=== PATIENT | female | born 1945 | race Caucasian/White ===

== ENCOUNTER → 2016-11-24 | Outpatient (CLI) | payer MEDICARE, OTHER | END | disposition home or self-care (01) | LOC: GMAB 11:31 | PROVIDERS: ATTEND Family Medicine | DX: E03.9 Hypothyroidism, unspecified (principal) ==

== ENCOUNTER → 2016-12-22 | Outpatient (CLI) | payer MEDICARE, OTHER ==
--- NOTE | 2016-12-22 15:34 | MAM ---
History: Well woman exam. Date of exam: 12/22/2016 Services provided: Bilateral full field digital screening mammography. CAD, the images were reviewed with R2 computer aided detection. FINDINGS: Glandular tissue is near completely fatty involuted. Comparison with 2014 exam. No dominant mass, architectural distortion or clustered microcalcification. IMPRESSION: Benign exam Recommendation: Routine annual mammography BIRAD CATEGORY: 2 BENIGN Electronically signed by: Colette Zapata MD 12/22/2016 3:33 PM CDT Workstation: [id number]
== END | disposition home or self-care (01) ==
LOC: MAMMO 14:29
PROVIDERS: ATTEND Family Medicine
DX: Z12.31 Encounter for screening mammogram for malignant neoplasm of breast (principal)

== ENCOUNTER → 2017-04-09 | Outpatient (CLI) | payer MEDICARE, OTHER ==
--- NOTE | 2017-04-09 15:41 | RAD ---
EXAM DESCRIPTION: Hip,Right 2 Views CLINICAL HISTORY: 71 years, Female, HIP PAIN COMPARISON: FINDINGS: Two views of the right hip do not demonstrate fracture or dislocation. Slight narrowing superolaterally with spurring. IMPRESSION: No fracture or dislocation. Mild degenerative change, slightly more advanced than the left side Electronically signed by: Viktor Sanchez MD 04/09/2017 3:40 PM CDT
--- NOTE | 2017-04-09 15:41 | RAD ---
EXAM DESCRIPTION: Hip,Left 2 Views CLINICAL HISTORY: 71 years, Female, HIP PAIN COMPARISON: FINDINGS: Two views of the left hip do not demonstrate fracture or dislocation. Minimal spurring from the lateral acetabulum IMPRESSION: No fracture or dislocation Electronically signed by: Viktor Sanchez MD 04/09/2017 3:40 PM CDT
--- NOTE | 2017-04-09 15:42 | RAD ---
EXAM DESCRIPTION: Pelvis CLINICAL HISTORY: 71 years, Female, HIP PAIN COMPARISON: FINDINGS: No fracture. Pelvic ring intact. Mild degenerative narrowing of both hips more on the right. IMPRESSION: No fracture or dislocation. Mild degenerative change Electronically signed by: Viktor Sanchez MD 04/09/2017 3:40 PM CDT
== END | disposition home or self-care (01) ==
LOC: RAD 08:14
PROVIDERS: ATTEND Orthopaedic Surgery
DX: M25.552 Pain in left hip (principal); M25.551 Pain in right hip

== ENCOUNTER → 2017-11-30 | Outpatient (CLI) | payer MEDICARE, OTHER | LOC: GMAB 10:45 | PROVIDERS: ATTEND Family Medicine | DX: E03.9 Hypothyroidism, unspecified (principal) ==

== ENCOUNTER → 2018-01-25 | Outpatient (CLI) | payer MEDICARE, OTHER ==
--- NOTE | 2018-01-28 08:06 | MAM ---
EXAM DESCRIPTION: 3D Screening BILATERAL : Digital Mammography. CLINICAL HISTORY: 72 years Female SCREENING . No complaints. No family history breast cancer. Childbirth. Postmenopausal. Currently on HRT. COMPARISON: Bilateral digital screening mammography 12/22/2016. Report from prior examination also reviewed. TECHNIQUE: Bilateral CC and MLO projection full-field images, 3-D tomosynthesis digital mammographic technique. CAD not utilized. FINDINGS: The breast parenchymal density pattern is: Scattered areas of fibroglandular density. No skin thickening or nipple retraction. Bilateral axillary lymph nodes. Bilateral vascular calcifications. Stable focal asymmetry in the upper-outer quadrant of the left breast. No new focal, stellate mass or density, focal asymmetry , and no suspicious microcalcifications bilaterally. Stable mammograms compared to prior study, taking into account differences in mammographic technique. IMPRESSION: BI-RADS CATEGORY: 2 - BENIGN FINDINGS. FOLLOW UP: Routine digital bilateral screening, one year interval from January 2018. Written communication explaining the IMPRESSION and follow-up, will be mailed to the patient and referring health care provider. According to the [employer], yearly mammograms are recommended starting at age 40 and continuing as long as a woman is in good health. Any breast change noted on a breast self-exam should be reported promptly to the patient's healthcare provider. Breast MRI is recommended for women with an approximately 20-25% or greater lifetime risk of breast cancer, including women with a strong family history of breast or ovarian cancer and women who have been treated for Hodgkin's disease. A negative mammographic report should not delay tissue diagnosis in patients with significant clinical history or physical findings. Extremely dense breast tissue limits the sensitivity of digital mammography. Electronically signed by: Saman Bae MD 01/28/2018 8:05 AM CDT
== END ==
LOC: MAMMO 13:00
PROVIDERS: ATTEND Family Medicine
DX: Z12.31 Encounter for screening mammogram for malignant neoplasm of breast (principal)

== ENCOUNTER → 2018-04-21 | Outpatient (CLI) | payer MEDICARE, OTHER ==
--- NOTE | 2018-04-21 16:57 | RAD ---
EXAM DESCRIPTION: Knee,Left Complete CLINICAL HISTORY: KNEE PAIN COMPARISON: None. FINDINGS: 4 standing views of the left knee show severe narrowing of the medial tibiofemoral compartment with sclerotic changes at the weightbearing articular surface. Mild medial and lateral tibiofemoral compartment joint line osteophytes are seen. Mild posterior superior osteophyte of the patella is noted without significant narrowing of the patellofemoral compartment. Osteophytes of the medial patellofemoral compartment are seen. Mild increased density in the suprapatellar bursa is noted. IMPRESSION: 3 compartment osteoarthritic changes of the left knee are seen with severe osteoarthritic changes of the medial tibiofemoral compartment. Small knee joint effusion is suspected. Electronically signed by: Froilan Leavitt MD 04/21/2018 4:56 PM CDT
--- NOTE | 2018-04-21 16:58 | RAD ---
EXAM DESCRIPTION: Pelvis CLINICAL HISTORY: HIP PAIN COMPARISON: April 09, 2017 IMPRESSION: Single AP supine view of the pelvis shows no evidence of acute fracture, focal bone destruction, or joint dislocation. Mild narrowing of the hip joint space bilaterally seen with mild circumferential osteophytes of the terminal head clinical data assistant with mild to moderate osteoarthritic changes of the hips. Electronically signed by: Froilan Leavitt MD 04/21/2018 4:57 PM CDT
== END ==
LOC: RAD 09:02
PROVIDERS: ATTEND Orthopaedic Surgery
DX: M17.12 Unilateral primary osteoarthritis, left knee (principal); M25.562 Pain in left knee; M25.552 Pain in left hip

== ENCOUNTER → 2018-05-09 | Outpatient (CLI) | payer MEDICARE, OTHER | LOC: LAB.O 09:17 | PROVIDERS: ATTEND Orthopaedic Surgery | DX: Z01.818 Encounter for other preprocedural examination (principal) ==

== ENCOUNTER 2018-06-08 05:38 | Inpatient (IN) | payer MEDICARE, OTHER ==
--- NOTE | 2018-06-06 09:10 | HP ---
CHIEF COMPLAINT: Left knee pain. HISTORY OF PRESENT ILLNESS: Ms. Mckeon is a 73-year-old female with a history of pain in the knee that has been getting progressively worse and has been refractory to conservative measures. Because of the refractory nature of it and her ongoing dysfunction from it, she has requested operative intervention. After discussing the risks, benefits and alternatives to operative therapy, the patient has given informed consent. PAST SURGICAL HISTORY: None. MEDICATIONS: 1. Citalopram. 2. Hydrocodone. 3. Zolpidem. ALLERGIES: PENICILLIN. CODE STATUS: Full code. IMMUNIZATIONS: Up to date. FAMILY HISTORY: None pertinent to today's complaint. SOCIAL HISTORY: The patient does not drink, smoke or use any illicit drugs. REVIEW OF SYSTEMS: Negative except as indicated in the History of Present Illness. PHYSICAL EXAMINATION: VITAL SIGNS: Blood pressure 118/86. Pulse 93. Height 5'3". Weight 189 pounds. MENTAL STATUS: The patient is awake, alert, and is able to give a good history and participate in the physical. The patient is oriented to person, place and time. SKIN: Normal tone and turgor. HEENT: Normocephalic, atraumatic. Pupils equal, round and reactive. Mucosal membranes are moist. NECK: Normal range of motion. No thyromegaly, no lymphadenopathy. CHEST: Normal respiratory excursion. CARDIAC: Regular rate and rhythm. No murmurs, rubs or gallops. MUSCULOSKELETAL: Bilateral upper extremities show full active range of motion. She has intact sensation. They are warm and well perfused. There is no deformity. Strength is 5/5. The right lower extremity shows no pain with range of motion of the hip. Sensation is intact. It is warm and well perfused. She has no significant varus/valgus or anterior/posterior laxity. The left lower extremity shows full range of motion of the hip. She has intact sensation throughout. It is warm and well perfused. She has no varus/valgus or anterior/posterior laxity of the knee. She is very tender to palpation diffusely. She has slight varus deformity. She has crepitus throughout her range of motion with full extension to flexion of about 110 degrees. IMAGING: X-rays show severe arthritis. ASSESSMENT: 1. Osteoarthritis. PLAN: The plan at this point is for total knee arthroplasty. We have discussed the risks, benefits, and alternatives to that and the patient has given informed consent. #[id number] [facility]
[2018-06-08] MEDS ORDERED: VANCOMYCIN HCL INJ 1,000 MG VIAL IVPB ONE ×4 (05:59→20:44)
[2018-06-08] MEDS ORDERED: LACTATED RINGERS 1,000 ML ONE ×2 (05:59→09:03)
[2018-06-08] MEDS ORDERED: TRANEXAMIC ACID 1,000 MG/10 ML VIAL ONE ×2 (05:59→06:00)
[2018-06-08] MEDS ORDERED: SODIUM CHL 0.9% 100ML MINI-BAG 100 ML IVPB ONE (05:59)
[2018-06-08] MEDS ORDERED: SODIUM CHLORIDE 0.9% 100ML 100 ML IVPB ONE (06:00)
[2018-06-08] MEDS ORDERED: ceFAZolin SODIUM 1 GM VIAL ONE ×2 (06:00→06:27)
[2018-06-08] MEDS ORDERED: SODIUM CHLORIDE 0.9% 250ML 250 ML ONE ×3 (06:00→20:43)
[2018-06-08] MEDS ORDERED: MORPHINE SULFATE *EPIDURAL* 0.5 MG/ML VIAL ONE (06:30)
[2018-06-08] MEDS ORDERED: MIDAZOLAM INJ 2 MG/2 ML VIAL ONE (06:31)
[2018-06-08] MEDS ORDERED: fentaNYL CITRATE INJ 50 MCG/ML AMP ONE (06:31)
[2018-06-08] MEDS ORDERED: TRANEXAMIC ACID 1,000 MG/10 ML VIAL IV ONE (06:36)
[2018-06-08] MEDS ORDERED: PROPOFOL 200 MG/20 ML VIAL IV ONE (07:00)
[2018-06-08] MEDS ORDERED: DEXAMETHASONE INJ 10 MG/ML VIAL ONE (07:00)
[2018-06-08] MEDS ORDERED: LIDOCAINE 1% 10 ML VIAL INJ ONE (07:00)
[2018-06-08] MEDS ORDERED: VECURONIUM BROMIDE 10 MG VIAL IV ONE (07:00)
[2018-06-08] MEDS ORDERED: ePHEDrine SULF 50 MG/ML ONE (07:00)
[2018-06-08] MEDS ORDERED: ONDANSETRON INJ 4 MG/2 ML VIAL ONE (07:00)
[2018-06-08] MEDS ORDERED: WATER FOR INJ 10 ML VIAL INJ ONE (07:00)
[2018-06-08] MEDS ORDERED: diphenhydrAMINE HCL 50 MG/ML VIAL ONE (07:24)
[2018-06-08] MEDS: BUPIVACAINE 0.5% 30 ML VIAL INJ ONE ×2 (08:09→08:49)
[2018-06-08] MEDS: ceFAZolin SODIUM 1 GM VIAL ONE ×2 (08:09→08:51)
[2018-06-08] MEDS: VANCOMYCIN HCL INJ 1,000 MG VIAL IVPB ONE ×2 (08:09→08:51)
[2018-06-08] MEDS: BUPIVACAINE LIPOSOME 13.3 MG/ML VIAL INJ ONE ×2 (08:09→08:49)
[2018-06-08] MEDS ORDERED: SUGAMMADEX SODIUM 200 MG/2 ML VIAL IV ONE (09:03)
[2018-06-08] MEDS ORDERED: ACETAMINOPHEN 325 MG TAB PO PRN (09:31)
[2018-06-08] MEDS ORDERED: NALOXONE HCL INJ 0.4 MG/ML VIAL IV PRN (09:31)
[2018-06-08] MEDS ORDERED: MORPHINE SULFATE INJ 10 MG/ML VIAL IV PRN (09:31)
[2018-06-08] MEDS ORDERED: TEMAZEPAM 15 MG CAP PO PRN (09:31)
[2018-06-08] MEDS ORDERED: MAGNESIUM HYDROXIDE 30 ML UD PO PRN (09:31)
[2018-06-08] MEDS ORDERED: PROMETHAZINE HCL INJ 12.5 MG in SODIUM CHLORIDE 0.9% 50ML 50 ML IVPB PRN (09:31)
[2018-06-08] MEDS ORDERED: CYCLOBENZAPRINE HCL 10 MG TAB PO PRN (09:31)
[2018-06-08] MEDS ORDERED: BISACODYL SUPPOSITORY 10 MG PR PRN (09:31)
[2018-06-08] MEDS ORDERED: MORPHINE SULFATE INJ 10 MG/ML VIAL IM PRN (09:31)
[2018-06-08] MEDS ORDERED: PROMETHAZINE HCL INJ 25 MG in SODIUM CHLORIDE 0.9% 50ML 50 ML IVPB PRN (09:31)
[2018-06-08] MEDS ORDERED: TRANEXAMIC ACID INJ 1,000 MG in SODIUM CHLORIDE 0.9% 100ML 100 ML IVPB ONE (09:31)
[2018-06-08] MEDS ORDERED: ALUMINUM & MAGNESIUM HYDROXIDE 30 ML UD PO PRN (09:31)
[2018-06-08] MEDS ORDERED: BENZOCAINE-MENTH LOZ (CEPACOL) 1 EA LOZ MT PRN (09:31)
[2018-06-08] MEDS ORDERED: ACETAMINOPHEN 500 MG TAB PO PRN (09:31)
[2018-06-08] MEDS ORDERED: DEX 5% W/NACL 0.45% 1000ML 1,000 ML IVS PRN (09:31)
[2018-06-08] MEDS ORDERED: IV SET AND CAP CHANGE INJ INJ SCH (10:00)
[2018-06-08] MEDS ORDERED: MORPHINE PCA 1 MG/ML 100 ML BAG IVPB SCH (10:00)
[2018-06-08] MEDS: ONDANSETRON INJ 4 MG/2 ML VIAL IV PRN ×2 (10:35→18:20)
--- NOTE | 2018-06-08 10:40 | OP ---
DATE OF PROCEDURE: 06/08/18 PREOPERATIVE DIAGNOSIS: 1. Arthritis of the knee. POSTOPERATIVE DIAGNOSIS: 1. Arthritis of the knee. PROCEDURE: 1. Total knee arthroplasty. SURGEON: Agustín De Paz MD. WET END OPERATOR: Saman Mustafa CST, SA-C. ANESTHESIA: General anesthesia. COMPLICATIONS: None. FINDINGS: Severe arthritis of the knee with varus deformity. INDICATION: Ms. Mckeon has a history of severe knee pain which has been refractory to conservative measures. Because of her ongoing knee pain and the refractory nature of it, she has requested operative intervention. After discussing the risks, benefits and alternatives to that, the patient has given informed consent for total knee arthroplasty. PROCEDURE: The patient was brought to the Operating Room and placed in supine position. General anesthesia was induced and the patient's leg was sterilely prepped and draped. Following prepping and draping, the distal femur was exposed and using an intramedullary guide, the distal femoral cut was made. The appropriate sized cutting block was measured, pinned into place, and the anterior, posterior, and chamfer cuts were made. The ACL was transected and the tibia was subluxed. Both the medial and lateral menisci were removed. An intramedullary guide was used to make the proximal tibial cut. The appropriate sized base plate was placed and a trial polyethylene was placed. The trial femur was placed, the knee was reduced, and the knee was taken through a range of motion. The knee was stable in anterior, posterior, varus and valgus stress. The patella tracked anatomically without evidence of subluxation or dislocation. After trialing, the trial components were removed and the bony surfaces were thoroughly irrigated with saline. Following irrigation, the surfaces were dried and the final components were cemented into place. The excess cement was removed and the remaining cement was allowed to cure. The knee was again taken through a range of motion to confirm stability. The wound was then irrigated with saline and closure was performed using PDS to approximate the arthrotomy followed by closure of the subcutaneous tissues with a combination of running and interrupted Monocryl sutures. Sterile dressing was placed. The patient was awoken from anesthesia and taken to Recovery. POSTOPERATIVE PLAN: The patient will be weight-bearing as tolerated on postoperative day 1. COMPONENTS: Inside Secure Triathlon knee, size 3 femur, size 3 tibia, 11 mm insert. [facility][id number] [facility]
--- NOTE | 2018-06-08 12:00 | RAD ---
EXAM DESCRIPTION: Knee,Left 2 or More Views CLINICAL HISTORY: 73 years Female, TKA COMPARISON: April 21, 2018 FINDINGS: Two views of left knee show interval left knee arthroplasty without hardware or other surgical complication. No periprosthetic fracture is identified. No suspicious radiopaque foreign body. IMPRESSION: Uncomplicated postoperative changes in the left knee. Electronically signed by: Shalom Vidal MD 06/08/2018 11:58 AM [facility]
[2018-06-08] MEDS: diphenhydrAMINE HCL 50 MG/ML VIAL IV PRN (12:45)
[2018-06-08] MEDS: SODIUM CHLORIDE 0.9% (FLUSH) 10 ML SYG IV PRN (12:45)
[2018-06-08] MEDS ORDERED: ceFAZolin SODIUM 2 GRAMS PREMI 50 ML IVPB ONE ×2 (15:41→20:44)
[2018-06-08] MEDS: ceFAZolin SODIUM 2 GRAMS PREMI 2 GM in PREMIX BAG 1 BAG IVPB SCH ×2 (17:09→23:55)
[2018-06-08] MEDS: CELECOXIB 100 MG CAP PO SCH (17:14)
[2018-06-08] MEDS: VANCOMYCIN HCL INJ 1,000 MG in SODIUM CHLORIDE 0.9% 250ML 250 ML IVPB SCH (17:48)
[2018-06-08] MEDS ORDERED: CITALOPRAM HYDROBROMIDE 20 MG PO SCH (21:00)
[2018-06-08] MEDS: ZOLPIDEM TARTRATE 5 MG TAB PO PRN (21:20)
[2018-06-08] MEDS: DOCUSATE CALCIUM 240 MG CAP PO SCH (21:20)
[2018-06-08] MEDS: CITALOPRAM HBR 20 MG TAB PO SCH (21:21)
--- NOTE | 2018-06-08 22:41 | CONS ---
DATE OF CONSULTATION: 06/08/18 SUPERVISING PHYSICIAN: Ezekiel Reddy M.D. CHIEF COMPLAINT: Left knee pain. HISTORY OF PRESENT ILLNESS: This is a 73 year-old female patient who has a history of left knee pain. She has had osteoarthritis for several years. She has tried conservative measures and has been unable to relieve the pain. She has requested operative intervention per Dr. Agustín De Paz, orthopedic surgeon, to do a left total knee arthroplasty today. She was admitted for her surgical procedure today. She had no problems intraoperatively and I am seeing the patient postoperatively in consultation. PAST MEDICAL HISTORY: 1. Hypothyroidism presently on no treatment. 2. Anxiety and depression. 3. Chronic low back pain. 4. Gastroesophageal reflux disease. 5. Osteoarthritis. 6. Obstructive sleep apnea. 7. Osteoporosis. 8. Hyperlipidemia. PAST SURGICAL HISTORY: 1. Tonsillectomy and adenoidectomy. 2. Scope of the right knee. OUTPATIENT MEDICATIONS: 1. Zolpidem. 2. Citalopram. ALLERGIES: PENICILLIN. FAMILY HISTORY: Positive for myocardial infarction and cancer. SOCIAL HISTORY: She is . She has 2 children. She denies any smoking, ETOH or illicit drug use. REVIEW OF SYSTEMS: Negative except as per history of present illness. PHYSICAL EXAMINATION: VITAL SIGNS: She is afebrile, heart rate 96, blood pressure 106/66, respiratory rate 14, O2 sat 93% on 2 liters nasal cannula. GENERAL: HEENT: NECK: CHEST: HEART: ABDOMEN: NEUROLOGIC: SKIN: LABORATORY: There are no labs or films to report at this time. IMPRESSION: 1. Osteoarthritis of the left knee status post left total knee arthroplasty per Dr. Agustín De Paz, orthopedic surgeon. Postoperative day #0. 2. Anxiety and depression. 3. Gastroesophageal reflux disease. 4. Osteoarthritis. 5. Obstructive sleep apnea. 6. Osteoporosis. PLAN: We will continue present supportive care. Orthopedic issues will be per Dr. Agustín De Paz, orthopedic surgeon. She will begin her physical therapy for strengthening and conditioning tomorrow. I have encouraged pulmonary hygiene. I have also given her a PPI due to her GERD and I have started her home medications. Will continue to monitor closely and follow as needed. Dr. Reddy is the collaborating physician available for consultation. #[id number] [facility]
[2018-06-08] MEDS: ENOXAPARIN SODIUM 30 MG/0.3 ML SYG SUBCU SCH (23:14)
[2018-06-09] MEDS ORDERED: PANTOPRAZOLE SODIUM IV 40 MG VIAL ONE (04:23)
[2018-06-09] MEDS: VANCOMYCIN HCL INJ 1,000 MG in SODIUM CHLORIDE 0.9% 250ML 250 ML IVPB SCH (06:03)
[2018-06-09] MEDS: PANTOPRAZOLE SODIUM TAB 40 MG PO SCH (06:06)
[2018-06-09] MEDS: HYDROcodone 5MG/APAP 325MG 1 EA TAB PO PRN ×2 (06:27→12:51)
[2018-06-09] MEDS: CELECOXIB 100 MG CAP PO SCH ×2 (08:04→17:10)
[2018-06-09] MEDS: MAGNESIUM OXIDE 400 MG TAB PO SCH (08:40)
--- NOTE | 2018-06-09 09:04 | PN ---
DATE: 06/09/18 SUBJECTIVE: Ms. Mckeon is doing well and pain is well controlled today. OBJECTIVE: Afebrile. Vital signs stable. Dressing is clean, dry and intact. ASSESSMENT: Status post total knee arthroplasty. PLAN: The plan at this point is for her to begin weightbearing as tolerated today and increase CPM as tolerated. #[id number] [facility]TDD
[2018-06-09] MEDS ORDERED: SODIUM CHLORIDE 0.9% 100ML 100 ML IVPB ONE (09:13)
[2018-06-09] MEDS ORDERED: ceFAZolin SODIUM 1 GM VIAL ONE (09:14)
[2018-06-09] MEDS: ceFAZolin SODIUM 2 GRAMS PREMI 2 GM in PREMIX BAG 1 BAG IVPB SCH (09:22)
[2018-06-09] MEDS: ONDANSETRON INJ 4 MG/2 ML VIAL IV PRN (09:32)
[2018-06-09] MEDS: SODIUM CHLORIDE 0.9% (FLUSH) 10 ML SYG IV PRN (09:33)
[2018-06-09] MEDS: ENOXAPARIN SODIUM 30 MG/0.3 ML SYG SUBCU SCH ×2 (11:25→23:25)
--- NOTE | 2018-06-09 13:07 | PN ---
SUPERVISING PHYSICIAN: Ezekiel Reddy MD DATE: 06/09/18 SUBJECTIVE: The patient is sitting up in her chair in her hospital room. She had a good night. Her pain has been minimal. She felt like her physical therapy went well. At this point, she feels like that on discharge, she will do outpatient therapy at [facility]. She denies any coughing, shortness of breath, nausea, vomiting, diarrhea or chest pain. OBJECTIVE: VITAL SIGNS: Afebrile. Heart rate 79. Blood pressure 95/63. Respiratory rate 17. O2 saturation 95% on room air. RESPIRATORY: Essentially clear to auscultation bilaterally. CARDIAC: Regular rate and rhythm. GASTROINTESTINAL: Abdomen is soft, nondistended, nontender. Bowel sounds are positive. EXTREMITIES: Her left knee has the JACQUELINE wrap. It is dry and intact. Bilateral pedal pulses are palpable at +2. NEUROLOGIC: Awake, alert and oriented times three. LABORATORY: Hemoglobin 11.1, hematocrit 34.9. All other labs and films have been reviewed via the EMR. ASSESSMENT: 1. Osteoarthritis of the left knee status post left total knee arthroplasty per Dr. Agustín De Paz, orthopedic surgeon. Postoperative day #1. 2. Anxiety and depression. 3. Gastroesophageal reflux disease. 4. Osteoarthritis. 5. Obstructive sleep apnea. 6. Osteoporosis. PLAN: We will continue present supportive care. Orthopedic issues will be per Dr. Agustín De Paz, orthopedic surgeon. She will continue with her physical therapy for strengthening and conditioning. Continue to encourage good pulmonary hygiene. I have ordered a walker for her for her discharge. We will continue to monitor the patient closely and follow as needed. Dr. Reddy is the collaborating physician and available for consultation. #[id number] [facility]
[2018-06-09] MEDS: traMADol HCL 50 MG TAB PO PRN ×2 (14:11→21:20)
[2018-06-09] MEDS: diphenhydrAMINE HCL 50 MG/ML VIAL IV PRN (20:16)
[2018-06-09] MEDS: CITALOPRAM HBR 20 MG TAB PO SCH (21:19)
[2018-06-09] MEDS: ZOLPIDEM TARTRATE 5 MG TAB PO PRN (21:19)
[2018-06-09] MEDS: DOCUSATE CALCIUM 240 MG CAP PO SCH (21:19)
[2018-06-10] MEDS: traMADol HCL 50 MG TAB PO PRN (05:59)
[2018-06-10] MEDS: PANTOPRAZOLE SODIUM TAB 40 MG PO SCH (06:00)
[2018-06-10] MEDS: CELECOXIB 100 MG CAP PO SCH (08:09)
[2018-06-10] MEDS: MAGNESIUM OXIDE 400 MG TAB PO SCH (08:23)
--- NOTE | 2018-06-10 08:23 | PN ---
DATE: 06/10/18 SUBJECTIVE: Ms. Mckeon is doing pretty well. OBJECTIVE: Afebrile. Vital signs stable. Wound is clean. There are no signs or symptoms of infection. ASSESSMENT: Status post total knee arthroplasty. PLAN: The plan at this point is for her to continue with therapy. We will discharge her today with followup in the clinic. She has been instructed to return immediately should any change in her condition occur. #[id number] [facility]
[2018-06-10] MEDS ORDERED: SODIUM CHLORIDE 0.9% (FLUSH) 10 ML SYG IV SCH (09:00)
[2018-06-10 09:49] VITALS: BP 111/73; TEMP 98.3; O2SAT 93
[2018-06-10] MEDS: ENOXAPARIN SODIUM 30 MG/0.3 ML SYG SUBCU SCH (11:50)
--- NOTE | 2018-06-10 16:40 | DS ---
SUPERVISING PHYSICIAN: Ezekiel Reddy M.D. DISCHARGE DIAGNOSIS: 1. Osteoarthritis of the left knee status post left total knee arthroplasty per Dr. Agustín De Paz, orthopedic surgeon. Postoperative day #2. 2. Anxiety and depression. 3. Gastroesophageal reflux disease. 4. Osteoarthritis. 5. Obstructive sleep apnea. 6. Osteoporosis. HISTORY OF PRESENT ILLNESS: This is a 73 year-old female patient who has had a long history of left knee pain. She has had osteoarthritis for many years. She has tried conservative measures and has been unable to relieve the pain. She has requested Dr. Agustín De Paz, orthopedic surgeon, for operative intervention to do a left total knee arthroplasty today. On the day of admission she was admitted for surgical intervention. She had her left total knee arthroplasty done. She had no problems intraoperatively. I saw the patient in consultation postoperatively. HOSPITAL COURSE: The patient had her home medications restarted. Her H&H was stable. On postoperative day #1, hemoglobin was 11.1 with hematocrit 34.9. All of her home medications were restarted. Her SENIOR RELATIONSHIP MANAGER pump was weaned off and she was transitioned to oral pain medications. She completed her physical therapy for strengthening and conditioning as ordered. Today, she has met those goals and she will be discharged home in stable condition. DISCHARGE PLAN: The patient will be discharged home in stable condition. She is to resume her previous diet and increase her activity as recommended by Physical Therapy. She will go to [facility]'s outpatient physical therapy department to continue her physical therapy. She is to resume her previous medications. I have cautioned her on use of NSAIDs until she has completed her Xarelto prescription. In addition to her home medications, she will be continued on Tramadol, Cyclobenzaprine and Xarelto. Her Xarelto will be for 9 additional days. She is return to the hospital or followup with Dr. De Paz's office for any problems or complications. She has a followup appointment with Dr. Agustín De Paz on 06/24/18 at 10:00 AM. DISCHARGE MEDICATIONS: 1. Citalopram. 2. Zolpidem. 3. Cyclobenzaprine. 4. Xarelto. 5. Tramadol. #[id number] [facility]TDD
[2018-06-11] MEDS ORDERED: MAGNESIUM HYDROXIDE 30 ML UD PO ONE (21:00)
[2018-06-11] MEDS ORDERED: BISACODYL SUPPOSITORY 10 MG PR ONE (21:00)
== END 2018-06-10 14:00 | disposition home or self-care (01) | DRG 470 ==
LOC: AMB 05:38 → MS 10:55
PROVIDERS: ADMIT Orthopaedic Surgery; ATTEND Orthopaedic Surgery
PROC: 0SRD0J9 Replacement of Left Knee Joint with Synthetic Substitute, Cemented, Open Approach (ICD-10-PCS; principal; 2018-06-08 07:25)
DX: M17.12 Unilateral primary osteoarthritis, left knee (principal); F41.9 Anxiety disorder, unspecified; F32.9 Major depressive disorder, single episode, unspecified; K21.9 Gastro-esophageal reflux disease without esophagitis; G47.33 Obstructive sleep apnea (adult) (pediatric); M81.0 Age-related osteoporosis without current pathological fracture; E78.5 Hyperlipidemia, unspecified; G89.29 Other chronic pain; Z88.0 Allergy status to penicillin

== ENCOUNTER → 2018-11-07 | Outpatient (CLI) | payer MEDICARE, OTHER ==
--- NOTE | 2018-11-07 10:34 | RAD ---
EXAM: Shoulder,Right 2 or More Views CLINICAL HISTORY: M25.511 COMPARISON STUDY: October 17, 2012 TECHNICAL: Internal and external rotation images of the right shoulder FINDINGS: There is a nondisplaced fracture involving the lateral aspect of the right humeral head with a cortical break seen medial to the greater tuberosity on the internal rotation image and a lucency present on the external rotation images. No displaced fracture seen. There is no dislocation. Osteophytic changes are seen along the humeral head. The visible chest is negative. IMPRESSION: 1. Nondisplaced fracture of the lateral aspect of the right humeral head involving the greater tuberosity. 2. Mild to moderate osteoarthritic changes of the right glenohumeral joint. Electronically signed by: Vinay Julian MD 11/07/2018 10:32 AM CDT
== END ==
LOC: RAD 07:56
PROVIDERS: ATTEND Orthopaedic Surgery
DX: S42.301A Unspecified fracture of shaft of humerus, right arm, initial encounter for closed fracture (principal); M19.011 Primary osteoarthritis, right shoulder

== ENCOUNTER → 2018-11-08 | Outpatient (CLI) | payer MEDICARE, OTHER | LOC: GMAE 14:29 | PROVIDERS: ATTEND Family Medicine | DX: R10.13 Epigastric pain (principal) ==

== ENCOUNTER → 2019-04-11 | Outpatient (CLI) | payer MEDICARE, OTHER ==
--- NOTE | 2019-04-11 15:34 | RAD ---
EXAM DESCRIPTION: Shoulder,Right 2 or More Views CLINICAL HISTORY: 73 years Female, SHOULDER PAIN COMPARISON: November 07, 2018 FINDINGS: Four views of the right shoulder show no acute fracture or malalignment. The right AC joint is well maintained. Mild degenerative changes in the right glenohumeral joint. No soft tissue abnormality. IMPRESSION: Mild degenerative changes in the right glenohumeral joint without acute right shoulder abnormality. Electronically signed by: Shalom Vidal MD 04/11/2019 3:32 PM CDT
== END ==
LOC: RAD 08:56
PROVIDERS: ATTEND Orthopaedic Surgery
DX: M19.011 Primary osteoarthritis, right shoulder (principal)

== ENCOUNTER → 2019-09-21 | Outpatient (CLI) | payer MEDICARE, OTHER ==
--- NOTE | 2019-09-21 13:33 | RAD ---
EXAM DESCRIPTION: Wrist,Right 3 Views CLINICAL HISTORY: 74 years Female, FX DISTAL END OF RADIUS COMPARISON: None. Findings: 3 view(s)/radiograph(s) Acute impacted, comminuted intra-articular distal radius fracture with mild volar angulation. No other fracture identified. Osteopenia. Advanced first CMC and STT osteoarthritis. No dislocation. IMPRESSION: Acute distal radius fracture. Electronically signed by: Martín Yusuf MD 09/21/2019 1:31 PM CDT
== END ==
LOC: RAD 07:53
PROVIDERS: ATTEND Orthopaedic Surgery
DX: S52.501D Unspecified fracture of the lower end of right radius, subsequent encounter for closed fracture with routine healing (principal)

== ENCOUNTER → 2019-10-09 | Outpatient (CLI) | payer MEDICARE, OTHER ==
--- NOTE | 2019-10-09 09:08 | RAD ---
EXAM DESCRIPTION: Wrist,Right 3 Views CLINICAL HISTORY: 74 years Female, FX DISTAL RADIUS COMPARISON: September 27, 2019 FINDINGS: Artifact from superimposed splint material limits evaluation of bony detail. Again seen is a comminuted, minimally displaced and impacted distal right radial fracture with intra-articular extension. The fracture remains non or partially united. No new fracture or malalignment, no other significant interval change. IMPRESSION: Distal right radial fracture as detailed above which remains non or partially united, not significantly changed from September 27, 2019. Electronically signed by: Shalom Vidal MD 10/09/2019 9:06 AM CDT
== END ==
LOC: RAD 08:53
PROVIDERS: ATTEND Orthopaedic Surgery
DX: S52.501K Unspecified fracture of the lower end of right radius, subsequent encounter for closed fracture with nonunion (principal)

== ENCOUNTER → 2019-10-23 | Outpatient (CLI) | payer MEDICARE, OTHER ==
--- NOTE | 2019-10-23 08:15 | RAD ---
EXAM DESCRIPTION: Wrist,Right 3 Views CLINICAL HISTORY: 74 years Female, RAD FX COMPARISON: October 09, 1999 Findings: 3 view(s)/radiograph(s) Similar alignment of the previously described comminuted intra-articular distal right radius fracture. Slight periosteal reaction although no solid osseous bridging. Osteopenia. No new fracture. No dislocation. Carpal alignment maintained. Similar first CMC and STT osteoarthritis. IMPRESSION: Similar alignment of the previously described comminuted intra-articular distal right radius fracture. No solid osseous bridging. Electronically signed by: Martín Yusuf MD 10/23/2019 8:14 AM CDT
== END ==
LOC: RAD 07:57
PROVIDERS: ATTEND Orthopaedic Surgery
DX: S52.501K Unspecified fracture of the lower end of right radius, subsequent encounter for closed fracture with nonunion (principal)

== ENCOUNTER → 2019-11-20 | Outpatient (CLI) | payer MEDICARE, OTHER ==
--- NOTE | 2019-11-20 08:44 | RAD ---
EXAM DESCRIPTION: Wrist,Right 3 Views CLINICAL HISTORY: 74 years Female, FRACTURE OF DISTAL END OF RADIUS RIGHT COMPARISON: 10/23/2019 FINDINGS: The visualized bones are poorly mineralized. Comminuted and impacted fracture of the distal radius demonstrates some degree of interval healing. There is persistent diffuse soft tissue swelling. IMPRESSION: Comminuted and impacted fracture of the distal radius demonstrates some degree of interval healing. Electronically signed by: Ksenia Martines MD 11/20/2019 8:43 AM CDT
== END ==
LOC: RAD 08:06
PROVIDERS: ATTEND Orthopaedic Surgery
DX: S52.501D Unspecified fracture of the lower end of right radius, subsequent encounter for closed fracture with routine healing (principal)

== ENCOUNTER → 2020-05-08 | Outpatient (CLI) | payer MEDICARE, OTHER | LOC: GMAE 10:52 | PROVIDERS: ATTEND Family Medicine | DX: E03.9 Hypothyroidism, unspecified (principal); D51.9 Vitamin B12 deficiency anemia, unspecified; Z51.81 Encounter for therapeutic drug level monitoring; Z79.899 Other long term (current) drug therapy; E78.49 Other hyperlipidemia ==

== ENCOUNTER → 2020-07-26 | Outpatient (CLI) | payer MEDICARE, OTHER ==
--- NOTE | 2020-07-27 07:12 | RAD ---
EXAM DESCRIPTION: Pelvis (accession [id number]), Hip,Right 2 Views (accession [id number]): CR/DR/XR CLINICAL HISTORY: 75 years Female RIGHT HIP PAIN COMPARISON: AP pelvis radiograph April 2018. TECHNIQUE: Two Views. AP neutral AP ABDuction. Right hip. One view AP pelvis. FINDINGS: Overall bone density is mildly decreased. Hypertrophy of the superior lateral right acetabulum with narrowing of the underlying hip joint space. No fracture. Lateral cortical bump on the bilateral femoral heads at the base junction with the lateral femoral neck. Mild offset and hypertrophic changes in the pubic symphysis. Minimal periarticular sclerosis in the inferior SI joints bilaterally. No abnormal radio dense objects in the soft tissues or joint spaces. IMPRESSION: Mild arthrosis in the left hip joint more than the right. Femoral lateral cortical bumps are associated with femoral acetabular impingement. No acute bony changes. Minimal arthrosis and offset in the pubic symphysis. Bilateral mild SI joint arthrosis. Electronically signed by: Saman Bae MD 07/27/2020 7:11 AM [facility]
--- NOTE | 2020-07-27 07:12 | RAD ---
EXAM DESCRIPTION: Pelvis (accession [id number]), Hip,Right 2 Views (accession [id number]): CR/DR/XR CLINICAL HISTORY: 75 years Female RIGHT HIP PAIN COMPARISON: AP pelvis radiograph April 2018. TECHNIQUE: Two Views. AP neutral AP ABDuction. Right hip. One view AP pelvis. FINDINGS: Overall bone density is mildly decreased. Hypertrophy of the superior lateral right acetabulum with narrowing of the underlying hip joint space. No fracture. Lateral cortical bump on the bilateral femoral heads at the base junction with the lateral femoral neck. Mild offset and hypertrophic changes in the pubic symphysis. Minimal periarticular sclerosis in the inferior SI joints bilaterally. No abnormal radio dense objects in the soft tissues or joint spaces. IMPRESSION: Mild arthrosis in the left hip joint more than the right. Femoral lateral cortical bumps are associated with femoral acetabular impingement. No acute bony changes. Minimal arthrosis and offset in the pubic symphysis. Bilateral mild SI joint arthrosis. Electronically signed by: Saman Bae MD 07/27/2020 7:11 AM [facility]
== END ==
LOC: RAD 07:52
PROVIDERS: ATTEND Orthopaedic Surgery
DX: M16.0 Bilateral primary osteoarthritis of hip (principal); M47.898 Other spondylosis, sacral and sacrococcygeal region; M24.851 Other specific joint derangements of right hip, not elsewhere classified; M24.852 Other specific joint derangements of left hip, not elsewhere classified